=== PATIENT | female | born 1960 ===

== ENCOUNTER 2025-05-21 21:50 | Emergency (ER) | payer MEDICARE ==
[~2025-05-21] VITALS: Ht 172.7 cm; Wt 88.0 kg
[2025-05-21] MEDS ORDERED: REGLAN5 MG PO (22:12)
[2025-05-21] MEDS ORDERED: PROTONIX40 M1 PO (22:12)
[2025-05-21] MEDS ORDERED: CITALOPRAM HBR10 MG PO (22:12)
[2025-05-21] MEDS ORDERED: MULTI VITAMIN1 EACH PO (22:13)
[2025-05-21] MEDS ORDERED: ONDANSETRON ODT8 MG (22:13)
[2025-05-21 22:21] LABS: BASOPHILS 0.6 % (0.1-1.2); EOSINOPHILS 1.2 % (0.7-5.8); LYMPHOCYTES 9.2 % (19.3-51.7); MCH 31.6 PG (25.6-32.2); MCHC 33.3 g/dL (32.2-35.5); MCV 94.9 fL (79.4-94.8); MONOCYTES 8.4 % (4.7-12.5); NEUTROPHILS 80.0 % (34.0-71.1); RBC 2.72 M/uL (3.93-5.22)
[2025-05-21 22:35] LABS: ALT (SGPT) 21.0 U/L (14-59); AST (SGOT) 22.0 U/L (15-37); GLOMERULAR FILTRATION RATE,EST 95.0 mL/min (>60); PROTEIN, TOTAL 6.5 g/dL (6.4-8.2); UREA NITROGEN 19.0 mg/dL (7-18)
[2025-05-22 01:31] VITALS: BP 139/75
--- NOTE | 2025-05-23 10:43 | EKG ---
[facility] [address] [facility] [place] [address] Signed Sinus bradycardia T wave abnormality, consider anterior ischemia Abnormal ECG No previous ECGs available Confirmed by Maeve Crawford DO ([id number]) on 05/23/2025 10:43:04 AM Electronically Signed By: MAEVE CRAWFORD DO 05/23/25 1043 PATIENT NAME: AGUSTÍN PINTO Electrocardiogram DATE OF : 56 PHYSICIAN: MAEVE CRAWFORD DO REPORT #: [id number] REPORT IS CONFIDENTIAL AND NOT TO BE RELEASED WITHOUT AUTHORIZATION
== END 2025-05-22 01:10 | disposition home or self-care (01) ==
LOC: ED 21:50
PROVIDERS: Emergency Medicine
DX: R55 Syncope and collapse (principal); Z88.0 Allergy status to penicillin; Z88.2 Allergy status to sulfonamides; Z79.899 Other long term (current) drug therapy
CPT/HCPCS: 36415; 80053; 83735; 84484; 85025; 93005; 93010; 99284